=== PATIENT | female | born 1985 | race Caucasian/White ===

== ENCOUNTER 2020-06-10 16:02 | Outpatient (CLI) | payer BC ==
--- NOTE | 2020-06-10 16:24 | RAD ---
EXAM: Chest PA and lateral: HISTORY: COVID positive patient. Chest pain. COMPARISON: None FINDINGS: Heart: Normal cardiac silhouette Aorta: Unremarkable Pulmonary vessels: Normal Costophrenic angles: Costophrenic angles are clear. Lungs: No consolidation or masses. Pneumothorax: No pneumothorax Osseous structures: No osseous abnormalities IMPRESSION: No acute cardiopulmonary process.
== END 2020-06-10 16:03 | disposition home or self-care (01) ==
LOC: BICRAD 16:02
PROVIDERS: ATTEND Physician Assistant
DX: U07.1 COVID-19 (principal); R07.9 Chest pain, unspecified
CPT/HCPCS: 71046